=== PATIENT | female | born 1965 | race Caucasian/White ===

== ENCOUNTER 2022-08-28 08:17 | Emergency (ER) | payer MEDICAID ==
[~2022-08-28] VITALS: Ht 162.6 cm; Wt 63.6 kg
[~2022-08-28 08:17] MED LIST: BUPR150T8 PO; CARV-50 PO; CLON-529 PO; LOSA1TAB39 PO; ROPI0.5T PO
[2022-08-28 08:18] VITALS: BP 186/125
[2022-08-28] MEDS ORDERED: CARV-50 PO (08:41)
[2022-08-28] MEDS ORDERED: LOSA1TAB39 PO (08:41)
[2022-08-28] MEDS ORDERED: BUPR150T8 PO (08:41)
[2022-08-28] MEDS ORDERED: APIX5TAB3 PO (08:45)
[2022-08-28] MEDS ORDERED: FEXO-271 PO (08:45)
[2022-08-28] MEDS ORDERED: BUSP5TAB3 PO (08:45)
[2022-08-28] MEDS ORDERED: CLON0.3T PO (08:45)
[2022-08-28] MEDS ORDERED: SOTA80TA73 PO (08:45)
[2022-08-28] MEDS ORDERED: ROPI1TAB6 PO (08:45)
[2022-08-28] MEDS ORDERED: TOBR5DRO2 RIGHTEYE (08:47)
== END 2022-08-28 09:04 | disposition home or self-care (01) ==
LOC: ER 08:18
DX: H16.9 Unspecified keratitis (principal); I10 Essential (primary) hypertension; I48.20 Chronic atrial fibrillation, unspecified; Z76.0 Encounter for issue of repeat prescription
CPT/HCPCS: 99281; 99283

== ENCOUNTER 2022-09-27 12:24 | Emergency (ER) | payer MEDICAID ==
[~2022-09-27] VITALS: Ht 165.1 cm; Wt 64.2 kg
[~2022-09-27 12:24] MED LIST changes: +APIX5TAB3 PO; +BUSP5TAB3 PO; +CLON0.3T PO; +FEXO-271 PO; +ROPI1TAB47 PO; +SOTA80TA73 PO; +TOBR5DRO2 RIGHTEYE
[2022-09-27 12:31] VITALS: BP 160/107; PULSE 58; RESP 16; TEMP 97.7; O2SAT 98
--- NOTE | 2022-09-27 17:41 | NUR ---
Not in lobby [id number], 1700, 1742
== END 2022-09-27 17:43 | disposition left against medical advice (07) ==
LOC: ER 12:24
DX: M54.2 Cervicalgia (principal); Z53.21 Procedure and treatment not carried out due to patient leaving prior to being seen by health care provider
CPT/HCPCS: 99281